=== PATIENT | male | born 1980 | race African-American/Black ===

== ENCOUNTER 2020-07-22 01:45 | Emergency (ER) | payer OTHER ==
[~2020-07-22] VITALS: Ht 185.4 cm; Wt 94.0 kg
[2020-07-22] MEDS ORDERED: KETOROLAC 30MG/ML VIAL IM ONE (02:15)
[2020-07-22] MEDS ORDERED: AZITHROMYCIN 500 MG TABLET PO NR (06:00)
[2020-07-22] MEDS: CEFTRIAXONE SODIUM 500 MG/VIAL IM NR (06:23)
[2020-07-22 06:39] VITALS: BP 155/78
== END 2020-07-22 07:41 | disposition home or self-care (01) ==
LOC: ER 01:45
DX: N45.1 Epididymitis (principal); L72.0 Epidermal cyst
CPT/HCPCS: 76870; 93976; 96372; 99284; J0696; J1885

== ENCOUNTER 2020-08-25 10:13 | Emergency (ER) | payer OTHER ==
[~2020-08-25] VITALS: Ht 185.4 cm; Wt 100.0 kg
[2020-08-25] MEDS ORDERED: HYDROCODONE/ACETAMINOPHEN 5/325MG TABLET PO STA (11:10)
[2020-08-25 11:24] LABS: BASOPHILS % 0.8 % (0.0-2.0); HEMOGLOBIN. 13.6 g/dL (14.0-18.0); LYMPHOCYTES % 22.6 % (20.0-50.0); MEAN CORPUSCULAR HEMOGLOBIN 27.5 pg (28.0-32.0); MEAN CORPUSCULAR VOLUME 86.6 fL (80.0-94.0); MEAN PLATELET VOLUME 9.4 fl (7.4-10.4); MONOCYTES % 11.2 % (2.0-8.0); NEUTROPHILS % 61.4 % (40.0-76.0); PLATELET 214 x1000/uL (130-400); RED BLOOD CELL COUNT 4.97 mill/uL (4.7-6.1); RED CELL DISTRIBUTION WIDTH 13.8 % (11.6-14.6)
[2020-08-25 11:25] LABS: CHLORIDE 113 mEq/L (98-107)
[2020-08-25 11:30] LABS: ETHANOL BLOOD < 10 mg/dL
[2020-08-25] MEDS ORDERED: AMOXICILLIN/POTASSIUM CLAVULANATE 875/125MG TAB PO ONE (12:15)
[2020-08-25] MEDS ORDERED: AMOXICILLIN 500 MG CAPSULE PO NR (12:15)
[2020-08-25 12:20] LABS: CLARITY URINE CLEAR (CLEAR); COLOR URINE YELLOW (YELLOW); KETONES URINE 1+ (NEGATIVE); LEUKOCYTE ESTERASE URINE NEGATIVE (NEGATIVE); NITRITE URINE NEGATIVE (NEGATIVE); OCCULT BLOOD URINE NEGATIVE (NEGATIVE); PH URINE 5.5 (4.5-8.0); PROTEIN URINE NEGATIVE (NEGATIVE); SPECIFIC GRAVITY URINE 1.016 (1.005-1.030)
[2020-08-25] MEDS ORDERED: AMOX-494 MT (12:33)
[2020-08-25] MEDS ORDERED: AZIT250T12 MT (12:34)
[2020-08-25 12:50] LABS: *AMPHETAMINES SCREEN URINE PRESUMTIVE POSITIVE (NEGATIVE); *BARBITURATES SCREEN URINE NEGATIVE (NEGATIVE); *BENZODIAZEPINES SCREEN URINE NEGATIVE (NEGATIVE); *COCAINE SCREEN URINE NEGATIVE (NEGATIVE); CANNABINOID URINE SCREEN NEGATIVE (NEGATIVE); PHENCYCLIDINE URINE SCREEN NEGATIVE (NEGATIVE)
[2020-08-25 12:51] LABS: METHADONE URINE SCREEN NEGATIVE (NEGATIVE); OPIATES URINE SCREEN NEGATIVE (NEGATIVE)
[2020-08-25 13:21] VITALS: BP 140/88
== END 2020-08-25 13:50 | disposition home or self-care (01) ==
LOC: ER 10:26
DX: J18.9 Pneumonia, unspecified organism (principal); F15.10 Other stimulant abuse, uncomplicated; F17.200 Nicotine dependence, unspecified, uncomplicated; J45.909 Unspecified asthma, uncomplicated; I10 Essential (primary) hypertension; Z86.59 Personal history of other mental and behavioral disorders; Z91.14 Patient's other noncompliance with medication regimen; Z98.890 Other specified postprocedural states
CPT/HCPCS: 36415; 71045; 80053; 80305; 80307; 80320; 80329; 81003; 84484; 85025; 93005; 99285; G0480

== ENCOUNTER 2020-08-30 20:08 | Emergency (ER) | payer OTHER ==
[~2020-08-30] VITALS: Ht 190.5 cm; Wt 117.0 kg
[~2020-08-30 20:08] MED LIST: AMOX-494 MT; AZIT250T12 MT
[2020-08-30 22:54] LABS: BASOPHILS % 0.8 % (0.0-2.0); EOSINOPHILS % 2.7 % (0.0-5.0); HEMATOCRIT. 42.1 % (42.0-52.0); HEMOGLOBIN. 13.4 g/dL (14.0-18.0); LYMPHOCYTES % 21.3 % (20.0-50.0); MEAN CORPUSCULAR HEMOGLOBIN 27.3 pg (28.0-32.0); MEAN CORPUSCULAR VOLUME 85.8 fL (80.0-94.0); MEAN PLATELET VOLUME 9.2 fl (7.4-10.4); MONOCYTES % 11.3 % (2.0-8.0); NEUTROPHILS % 63.9 % (40.0-76.0); PLATELET 234 x1000/uL (130-400); RED BLOOD CELL COUNT 4.91 mill/uL (4.7-6.1); RED CELL DISTRIBUTION WIDTH 13.7 % (11.6-14.6)
[2020-08-30 22:56] LABS: CLARITY URINE CLEAR (CLEAR); COLOR URINE YELLOW (YELLOW); KETONES URINE TRACE (NEGATIVE); LEUKOCYTE ESTERASE URINE NEGATIVE (NEGATIVE); NITRITE URINE NEGATIVE (NEGATIVE); OCCULT BLOOD URINE NEGATIVE (NEGATIVE); PH URINE 5.5 (4.5-8.0); PROTEIN URINE TRACE (NEGATIVE); SPECIFIC GRAVITY URINE 1.037 (1.005-1.030)
[2020-08-30 22:59] LABS: CHLORIDE 107 mEq/L (98-107)
[2020-08-30 23:53] VITALS: BP 160/85
== END 2020-08-31 01:28 | disposition left against medical advice (07) ==
LOC: ER 20:08
DX: N49.2 Inflammatory disorders of scrotum (principal); N48.89 Other specified disorders of penis; I86.1 Scrotal varices; F12.90 Cannabis use, unspecified, uncomplicated; F15.10 Other stimulant abuse, uncomplicated; F20.9 Schizophrenia, unspecified; Z79.2 Long term (current) use of antibiotics
CPT/HCPCS: 36415; 76870; 80048; 81003; 85025; 93976; 99284

== ENCOUNTER 2020-09-08 21:21 | Emergency (ER) | payer OTHER ==
[~2020-09-08] VITALS: Ht 190.5 cm; Wt 116.0 kg
[2020-09-08 21:47] VITALS: BP 144/88
[2020-09-08] MEDS ORDERED: CEPH500T MT (21:56)
[2020-09-08] MEDS ORDERED: ACETAMINOPHEN 325MG TABLET PO ONE (22:00)
== END 2020-09-09 00:33 | disposition home or self-care (01) ==
LOC: ER 21:21
DX: L03.116 Cellulitis of left lower limb (principal); R03.0 Elevated blood-pressure reading, without diagnosis of hypertension
CPT/HCPCS: 29515; 73620; 93971; 99284; Z7610

== ENCOUNTER 2020-09-09 02:38 | Emergency (ER) | payer OTHER ==
[~2020-09-09] VITALS: Ht 190.5 cm; Wt 100.0 kg
[~2020-09-09 02:38] MED LIST changes: +CEPH500T MT
[2020-09-09 03:13] VITALS: BP 154/102
== END 2020-09-09 03:33 | disposition home or self-care (01) ==
LOC: ER 03:03
DX: Z46.89 Encounter for fitting and adjustment of other specified devices (principal); M79.672 Pain in left foot; R03.0 Elevated blood-pressure reading, without diagnosis of hypertension; F20.9 Schizophrenia, unspecified
CPT/HCPCS: 99283

== ENCOUNTER 2020-10-15 00:49 | Emergency (ER) | payer OTHER ==
[~2020-10-15] VITALS: Ht 182.9 cm; Wt 95.0 kg
[2020-10-15 01:09] VITALS: BP 140/88
[2020-10-15] MEDS ORDERED: KETOROLAC 60MG/2ML VIAL IM STA (01:35)
[2020-10-15] MEDS ORDERED: NAPR-681 PO (03:41)
== END 2020-10-15 04:04 | disposition home or self-care (01) ==
LOC: ER 01:04
DX: M25.512 Pain in left shoulder (principal); I11.0 Hypertensive heart disease with heart failure; I50.9 Heart failure, unspecified; F12.90 Cannabis use, unspecified, uncomplicated; F15.10 Other stimulant abuse, uncomplicated; Z79.899 Other long term (current) drug therapy
CPT/HCPCS: 73030; 96372; 99283; J1885

== ENCOUNTER 2020-10-27 09:40 | Emergency (ER) | payer OTHER ==
[~2020-10-27] VITALS: Ht 180.3 cm; Wt 90.0 kg
[~2020-10-27 09:40] MED LIST changes: +NAPR-681 PO
[2020-10-27 09:53] VITALS: BP 151/77
[2020-10-27] MEDS ORDERED: LIDOCAINE HCL 1% 20ML VIAL (Pyxis) INJ INFIL ONE (11:45)
[2020-10-27] MEDS ORDERED: CEFTRIAXONE SODIUM 1 G/VIAL IM ONE (11:45)
[2020-10-27] MEDS ORDERED: CEPH500T MT (12:25)
[2020-10-27] MEDS ORDERED: DOXY100C2 MT (12:25)
== END 2020-10-27 12:42 | disposition home or self-care (01) ==
LOC: ER 09:40
DX: L03.032 Cellulitis of left toe (principal); F12.10 Cannabis abuse, uncomplicated; F15.10 Other stimulant abuse, uncomplicated; I10 Essential (primary) hypertension
CPT/HCPCS: 93970; 96372; 99284; J0696; J3490

== ENCOUNTER 2020-12-08 04:56 | Emergency (ER) | payer OTHER ==
[~2020-12-08] VITALS: Ht 185.4 cm; Wt 119.0 kg
[~2020-12-08 04:56] MED LIST changes: +DOXY100C2 MT
[2020-12-08] MEDS ORDERED: DOXY100C2 MT (05:38)
[2020-12-08] MEDS ORDERED: CEPH500T MT (05:38)
[2020-12-08] MEDS ORDERED: MUPIROCIN 2% OINT 22GM TOP NR (05:45)
[2020-12-08 05:59] VITALS: BP 136/84
== END 2020-12-08 06:00 | disposition home or self-care (01) ==
LOC: ER 04:56
DX: L73.9 Follicular disorder, unspecified (principal)
CPT/HCPCS: 99283

== ENCOUNTER 2021-05-08 17:41 | Emergency (ER) | payer OTHER ==
[~2021-05-08] VITALS: Ht 190.5 cm; Wt 109.0 kg
[~2021-05-08 17:41] MED LIST changes: -DOXY100C2 MT; +DOXY100C5 MT
[2021-05-08] MEDS ORDERED: TETANUS, DIPHTHERIA, PERTUSSIS VAC/PF 0.5ML (>10YR OLD) IM ONE (19:00)
[2021-05-08] MEDS ORDERED: LIDOCAINE HCL/PF 1% 10 MG/ML 5ML VIAL INFIL ONE (23:15)
[2021-05-08] MEDS ORDERED: BACITRACIN ZINC OINT UDPKT TOP ONE (23:15)
[2021-05-08 23:21] LABS: CHLORIDE 110 mEq/L (98-107)
[2021-05-08 23:26] LABS: BASOPHILS % 0.3 % (0.0-2.0); EOSINOPHILS % 3.1 % (0.0-5.0); HEMATOCRIT. 37.1 % (42.0-52.0); LYMPHOCYTES % 13.3 % (20.0-50.0); MEAN CORPUSCULAR HEMOGLOBIN 27.3 pg (28.0-32.0); MEAN CORPUSCULAR VOLUME 84.5 fL (80.0-94.0); MEAN PLATELET VOLUME 9.1 fl (7.4-10.4); MONOCYTES % 11.5 % (2.0-8.0); NEUTROPHILS % 71.8 % (40.0-76.0); PLATELET 196 x1000/uL (130-400); RED CELL DISTRIBUTION WIDTH 14.8 % (11.6-14.6)
[2021-05-09] MEDS ORDERED: AMOXICILLIN/POTASSIUM CLAVULANATE 875/125MG TAB PO ONE (00:15)
[2021-05-09] MEDS ORDERED: AMOX-424 MT (01:21)
[2021-05-09 02:08] VITALS: BP 122/82
== END 2021-05-09 02:45 | disposition home or self-care (01) ==
LOC: ER 17:41
DX: S01.511A Laceration without foreign body of lip, initial encounter (principal); Y04.0XXA Assault by unarmed brawl or fight, initial encounter; Y93.89 Activity, other specified; Y92.89 Other specified places as the place of occurrence of the external cause; Y99.8 Other external cause status; I10 Essential (primary) hypertension; F12.10 Cannabis abuse, uncomplicated; F15.10 Other stimulant abuse, uncomplicated; Z79.899 Other long term (current) drug therapy
CPT/HCPCS: 12011; 36415; 80053; 83880; 85025; 90471; 90715; 93971; 99284; A4217; J3490; Z7610

== ENCOUNTER 2022-01-05 05:46 | Emergency (ER) | payer OTHER ==
[~2022-01-05] VITALS: Ht 182.9 cm; Wt 90.0 kg
[~2022-01-05 05:46] MED LIST changes: +AMOX-424 MT
[2022-01-05 05:55] VITALS: BP 120/80
[2022-01-05] MEDS ORDERED: ACETAMINOPHEN 325MG TABLET PO ONE (06:00)
[2022-01-05 06:25] LABS: CHLORIDE 102 mEq/L (98-107)
[2022-01-05 06:31] LABS: HEMATOCRIT. 41.5 % (42.0-52.0); HEMOGLOBIN. 13.1 g/dL (14.0-18.0); MEAN CORPUSCULAR HEMOGLOBIN 26.5 pg (28.0-32.0); MEAN CORPUSCULAR VOLUME 83.8 fL (80.0-94.0); MEAN PLATELET VOLUME 8.8 fl (7.4-10.4); PLATELET 176 x1000/uL (130-400); RED BLOOD CELL COUNT 4.95 mill/uL (4.7-6.1); RED CELL DISTRIBUTION WIDTH 15.3 % (11.6-14.6)
[2022-01-05] MEDS ORDERED: TOPUD PO (07:49)
[2022-01-05 08:21] LABS: PLATELET ESTIMATE NORMAL
== END 2022-01-05 08:26 | disposition home or self-care (01) ==
LOC: ER 05:46
DX: R60.9 Edema, unspecified (principal); I10 Essential (primary) hypertension
CPT/HCPCS: 36415; 71045; 76870; 80053; 83880; 85025; 93005; 93976; 99285

== ENCOUNTER 2022-06-20 13:23 | Inpatient (IN) | payer OTHER ==
[~2022-06-20] VITALS: Ht 182.9 cm; Wt 149.9 kg
[~2022-06-20 13:23] MED LIST changes: +TOPUD PO
[2022-06-20 20:03] LABS: BASOPHILS % 1.3 % (0.0-2.0); EOSINOPHILS % 7.1 % (0.0-5.0); HEMATOCRIT. 38.2 % (42.0-52.0); HEMOGLOBIN. 12.1 g/dL (14.0-18.0); LYMPHOCYTES % 39.3 % (20.0-50.0); MEAN CORPUSCULAR HEMOGLOBIN 25.5 pg (28.0-32.0); MEAN CORPUSCULAR VOLUME 80.5 fL (80.0-94.0); MONOCYTES % 10.8 % (2.0-8.0); NEUTROPHILS % 41.5 % (40.0-76.0); PLATELET 210 x1000/uL (130-400); RED BLOOD CELL COUNT 4.74 mill/uL (4.7-6.1); RED CELL DISTRIBUTION WIDTH 15.3 % (11.6-14.6)
[2022-06-20 20:09] LABS: CHLORIDE 103 mEq/L (98-107)
[2022-06-21 06:12] LABS: CLARITY URINE CLEAR (CLEAR); COLOR URINE YELLOW (YELLOW); KETONES URINE NEGATIVE (NEGATIVE); LEUKOCYTE ESTERASE URINE NEGATIVE (NEGATIVE); NITRITE URINE NEGATIVE (NEGATIVE); OCCULT BLOOD URINE NEGATIVE (NEGATIVE); PROTEIN URINE NEGATIVE (NEGATIVE); SPECIFIC GRAVITY URINE 1.009 (1.005-1.030); UROBILINOGEN URINE 0.2 E.U./dL (0.2-1.0)
[2022-06-21] MEDS ORDERED: NALOXONE HCL 0.4MG/ML VIAL IV PRN (08:00)
[2022-06-21] MEDS ORDERED: HYDROCODONE/ACETAMINOPHEN 5/325MG TABLET PO PRN ×2 (08:00→13:45)
[2022-06-21 09:00] VITALS: BP 145/96
[2022-06-21 13:02] VITALS: BP 143/98
== END 2022-06-21 14:00 | disposition short-term general hospital (02) | DRG 844 ==
LOC: ER 13:23 → 6EST 06-21 05:41 → EDBEDREQ 06-21 05:44 → EDBEDREQTM 06-21 05:44 → EDBEDREQDT 06-21 05:44 → ENRESERV 06-21 07:26
PROVIDERS: ADMIT Internal Medicine; ATTEND Internal Medicine
DX: T24.002A Burn of unspecified degree of unspecified site of left lower limb, except ankle and foot, initial encounter (principal); I10 Essential (primary) hypertension; T24.001A Burn of unspecified degree of unspecified site of right lower limb, except ankle and foot, initial encounter; Y27.8XXA Contact with other hot objects, undetermined intent, initial encounter; Y93.89 Activity, other specified; Y92.89 Other specified places as the place of occurrence of the external cause; Y99.8 Other external cause status
CPT/HCPCS: 36415; 71045; 80053; 81003; 83605; 83880; 84484; 85025; 93005; 93970; 99285